=== PATIENT | male | born 1940 | race Caucasian/White ===

== ENCOUNTER 2017-01-04 13:27 | Outpatient (CLI) | payer MEDICARE ==
[2017-01-04 13:49] LABS: INR-International Normal Ratio 1.1; Prothrombin Time 14.7 SEC (12.0-14.7)
[2017-01-04 14:10] LABS: #Basophils 0.1 thou/uL (0.0-0.2); #Eosinphils 0.4 thou/uL (0.0-0.7); #Lymphocytes 2.1 thou/uL (1.20-3.40); #Neutrophils 6.1 thou/uL (1.40-6.50); %Basophils 0.8 % (0.0-1.0); %Eosinophils 3.9 % (0.0-10.0); %Lymphocytes 21.6 % (21.0-51.0); %Monocytes 10.8 % (0.0-10.0); %Neutrophils 62.9 % (42.0-75.0); Anisocytosis SLIGHT = 6-15 cells (100X) (0-5/hpf); Hemoglobin 14.9 g/dL (14.0-18.0); MDiff Complete? YES; Mean Corpuscular HGB CONC 34.1 g/dL (32.0-36.0); Mean Corpuscular Hemoglobin 35.6 pg (27.0-31.0); Mean Corpuscular Volume 104.4 fl (80.0-94.0); Mean Platelet Volume 11.2 fL (7.4-10.4); Platelet Count 177 thou/uL (130-400); Red Blood Cell (RBC) Count 4.19 mill/uL (4.70-6.10); White Blood Cell (WBC) Count 9.6 thou/uL (4.8-10.8)
[2017-01-04 18:38] LABS: ALT (SGPT) 48 U/L (8-55); AST (SGOT) 27 U/L (5-34); Albumin 4.3 g/dL (3.4-4.8); Alkaline Phosphatase 97 U/L (40-150); Anion Gap 18 mmol/L (10-20); BUN (Urea Nitrogen) 12 mg/dL (8.4-25.7); Bilirubin, Total Less than 0.3 mg/dL (0.2-1.2); CRP (Inflammatory) 2.09 mg/dL (= or < 0.5); Calc. Creatinine Clearance 0 mL/min (70-130); Carbon Dioxide 26 mmol/L (23-31); Chloride 99 mmol/L (98-107); Estimated GFR-MDRD 67; Globulin 2.5 g/dL (2.4-3.5); Glucose 93 mg/dL (83-110); Potassium 3.9 mmol/L (3.5-5.1); Protein, Total 6.8 g/dL (5.8-8.1); Sodium 139 mmol/L (136-145)
[2017-01-04 18:46] LABS: Vancomycin, Trough 16.3 ug/mL
== END 2017-01-04 13:28 | disposition home or self-care (01) ==
LOC: MADLAB 13:27
PROVIDERS: ATTEND Family Medicine
DX: I33.9 Acute and subacute endocarditis, unspecified (principal); I74.9 Embolism and thrombosis of unspecified artery; D75.89 Other specified diseases of blood and blood-forming organs
CPT/HCPCS: 36415; 80053; 80202; 84165; 84166; 85025; 85610; 85652; 86140

== ENCOUNTER 2017-01-10 13:23 | Outpatient (CLI) | payer MEDICARE ==
[2017-01-10 13:38] LABS: Vancomycin, Trough 26.1 ug/mL
[2017-01-10 13:39] LABS: #Basophils 0.1 thou/uL (0.0-0.2); #Eosinphils 0.3 thou/uL (0.0-0.7); #Lymphocytes 1.7 thou/uL (1.20-3.40); #Monocytes 0.9 thou/uL (0.11-0.59); #Neutrophils 4.6 thou/uL (1.40-6.50); %Basophils 1.3 % (0.0-1.0); %Eosinophils 4.6 % (0.0-10.0); %Lymphocytes 21.9 % (21.0-51.0); %Monocytes 12.1 % (0.0-10.0); %Neutrophils 60.1 % (42.0-75.0); ALT (SGPT) 41 U/L (8-55); AST (SGOT) 22 U/L (5-34); Albumin 4.2 g/dL (3.4-4.8); Alkaline Phosphatase 112 U/L (40-150); Anion Gap 14 mmol/L (10-20); BUN (Urea Nitrogen) 18 mg/dL (8.4-25.7); Bilirubin, Total 0.4 mg/dL (0.2-1.2); CRP (Inflammatory) 2.84 mg/dL (= or < 0.5); Calc. Creatinine Clearance 0 mL/min (70-130); Calcium 9.2 mg/dL (7.8-10.44); Carbon Dioxide 31 mmol/L (23-31); Chloride 100 mmol/L (98-107); Estimated GFR-MDRD 45; Globulin 2.4 g/dL (2.4-3.5); Glucose 95 mg/dL (83-110); Hemoglobin 14.5 g/dL (14.0-18.0); Mean Corpuscular HGB CONC 33.3 g/dL (32.0-36.0); Mean Corpuscular Hemoglobin 34.4 pg (27.0-31.0); Mean Corpuscular Volume 103.3 fl (80.0-94.0); Mean Platelet Volume 9.3 fL (7.4-10.4); Platelet Count 206 thou/uL (130-400); Potassium 4.4 mmol/L (3.5-5.1); Protein, Total 6.6 g/dL (5.8-8.1); RBC Distribution Width 10.6 % (11.5-14.5); Red Blood Cell (RBC) Count 4.22 mill/uL (4.70-6.10); Sodium 141 mmol/L (136-145); White Blood Cell (WBC) Count 7.6 thou/uL (4.8-10.8)
[2017-01-10 13:46] LABS: Prothrombin Time 13.9 SEC (12.0-14.7)
== END 2017-01-10 13:24 | disposition home or self-care (01) ==
LOC: MADLAB 13:23
PROVIDERS: ATTEND Family Medicine
DX: I33.0 Acute and subacute infective endocarditis (principal); I74.9 Embolism and thrombosis of unspecified artery; D75.89 Other specified diseases of blood and blood-forming organs
CPT/HCPCS: 36415; 80053; 80202; 84165; 84166; 85025; 85610; 85652; 86140; 86334

== ENCOUNTER 2017-01-12 11:06 | Outpatient (CLI) | payer MEDICARE ==
[2017-01-12 12:20] LABS: Vancomycin, Trough 14.5 ug/mL
[2017-01-12 13:07] LABS: Anion Gap 15 mmol/L (10-20); BUN (Urea Nitrogen) 13 mg/dL (8.4-25.7); Calc. Creatinine Clearance 0 mL/min (70-130); Calcium 8.8 mg/dL (7.8-10.44); Carbon Dioxide 29 mmol/L (23-31); Chloride 98 mmol/L (98-107); Estimated GFR-MDRD 48; Glucose 103 mg/dL (83-110); Sodium 138 mmol/L (136-145)
== END 2017-01-12 11:07 | disposition home or self-care (01) ==
LOC: MADLABSP 11:06
PROVIDERS: ATTEND Family Medicine
DX: Z51.81 Encounter for therapeutic drug level monitoring (principal); I33.0 Acute and subacute infective endocarditis; I74.9 Embolism and thrombosis of unspecified artery; D75.89 Other specified diseases of blood and blood-forming organs; Z79.2 Long term (current) use of antibiotics
CPT/HCPCS: 36415; 80048; 80202

== ENCOUNTER 2017-01-16 13:17 | Outpatient (CLI) | payer MEDICARE ==
[2017-01-16 13:39] LABS: Vancomycin, Trough 24.8 ug/mL
== END 2017-01-16 13:18 | disposition home or self-care (01) ==
LOC: MADLAB 13:17
PROVIDERS: ATTEND Internal Medicine Infectious Disease
DX: I33.0 Acute and subacute infective endocarditis (principal); D75.89 Other specified diseases of blood and blood-forming organs
CPT/HCPCS: 36415; 80202

== ENCOUNTER 2017-01-19 13:08 | Outpatient (CLI) | payer MEDICARE ==
[2017-01-19 13:37] LABS: INR-International Normal Ratio 1.2; Prothrombin Time 15.2 SEC (12.0-14.7)
[2017-01-19 13:53] LABS: Vancomycin, Trough 16.5 ug/mL
[2017-01-19 13:55] LABS: ALT (SGPT) 71 U/L (8-55); AST (SGOT) 43 U/L (5-34); Albumin 3.9 g/dL (3.4-4.8); Alkaline Phosphatase 196 U/L (40-150); Anion Gap 17 mmol/L (10-20); BUN (Urea Nitrogen) 16 mg/dL (8.4-25.7); Bilirubin, Total 0.3 mg/dL (0.2-1.2); CRP (Inflammatory) 2.49 mg/dL (= or < 0.5); Calc. Creatinine Clearance 0 mL/min (70-130); Calcium 9.1 mg/dL (7.8-10.44); Carbon Dioxide 28 mmol/L (23-31); Chloride 98 mmol/L (98-107); Estimated GFR-MDRD 42; Globulin 2.3 g/dL (2.4-3.5); Glucose 92 mg/dL (83-110); Potassium 4.6 mmol/L (3.5-5.1); Protein, Total 6.2 g/dL (5.8-8.1); Sodium 138 mmol/L (136-145)
[2017-01-19 14:35] LABS: Band 5 % (5-11); Eosinophils 2 % (0-10); Hemoglobin 13.6 g/dL (14.0-18.0); Lymphocytes 21 % (21-51); MDiff Complete? YES; Mean Corpuscular HGB CONC 34.8 g/dL (32.0-36.0); Mean Corpuscular Volume 100.6 fl (80.0-94.0); Monocytes 25 % (0-10); Neutrophil 47 % (42-75); PLT Morphology Comment Appears Adequate; Platelet Count 170 thou/uL (130-400); RBC Distribution Width 10.5 % (11.5-14.5); Red Blood Cell (RBC) Count 3.87 mill/uL (4.70-6.10); White Blood Cell (WBC) Count 4.6 thou/uL (4.8-10.8)
== END 2017-01-19 13:09 | disposition home or self-care (01) ==
LOC: MADLAB 13:08
PROVIDERS: ATTEND Internal Medicine Infectious Disease
DX: I33.0 Acute and subacute infective endocarditis (principal); I74.9 Embolism and thrombosis of unspecified artery
CPT/HCPCS: 80053; 80202; 85025; 85610; 85652; 86140

== ENCOUNTER 2017-01-22 10:58 | Outpatient (CLI) | payer MEDICARE ==
[2017-01-22 11:24] LABS: Prothrombin Time 13.9 SEC (12.0-14.7)
[2017-01-22 11:27] LABS: Vancomycin, Trough 13.3 ug/mL
[2017-01-22 11:34] LABS: ALT (SGPT) 53 U/L (8-55); AST (SGOT) 41 U/L (5-34); Albumin 3.7 g/dL (3.4-4.8); Alkaline Phosphatase 198 U/L (40-150); Anion Gap 13 mmol/L (10-20); BUN (Urea Nitrogen) 19 mg/dL (8.4-25.7); Bilirubin, Total 0.3 mg/dL (0.2-1.2); CRP (Inflammatory) 2.14 mg/dL (= or < 0.5); Calc. Creatinine Clearance 0 mL/min (70-130); Calcium 8.2 mg/dL (7.8-10.44); Carbon Dioxide 27 mmol/L (23-31); Chloride 97 mmol/L (98-107); Estimated GFR-MDRD 39; Globulin 2.2 g/dL (2.4-3.5); Glucose 135 mg/dL (83-110); Potassium 4.1 mmol/L (3.5-5.1); Protein, Total 5.9 g/dL (5.8-8.1); Sodium 133 mmol/L (136-145)
[2017-01-22 12:00] LABS: Anisocytosis SLIGHT = 6-15 cells (100X) (0-5/hpf); Band 13 % (5-11); Eosinophils 8 % (0-10); Hemoglobin 13.2 g/dL (14.0-18.0); Lymphocytes 31 % (21-51); MDiff Complete? YES; Mean Corpuscular HGB CONC 34.4 g/dL (32.0-36.0); Mean Corpuscular Hemoglobin 34.7 pg (27.0-31.0); Mean Corpuscular Volume 100.9 fl (80.0-94.0); Mean Platelet Volume 9.4 fL (7.4-10.4); Monocytes 2 % (0-10); Neutrophil 46 % (42-75); Platelet Count 124 thou/uL (130-400); RBC Distribution Width 10.3 % (11.5-14.5); Red Blood Cell (RBC) Count 3.82 mill/uL (4.70-6.10); White Blood Cell (WBC) Count 3.6 thou/uL (4.8-10.8)
== END 2017-01-22 10:59 | disposition home or self-care (01) ==
LOC: MADLAB 10:58
PROVIDERS: ATTEND Internal Medicine Infectious Disease
DX: I33.0 Acute and subacute infective endocarditis (principal); I74.9 Embolism and thrombosis of unspecified artery; D75.89 Other specified diseases of blood and blood-forming organs
CPT/HCPCS: 36415; 80053; 80202; 85025; 85610; 85652; 86140

== ENCOUNTER 2017-01-22 16:29 | Emergency (ER) | payer MEDICARE ==
[~2017-01-22 16:29] MED LIST: Sodium Chloride 0.9% 1,000 ML BAG ONE; Sodium Chloride 0.9% 100 ML BAG ONE
[2017-01-22] MEDS ORDERED: Acetaminophen 500 MG TAB ONE (16:36)
[2017-01-22] MEDS ORDERED: Piperacillin/Tazobactam 4.5 GM VIAL ONE (16:53)
[2017-01-22] MEDS ORDERED: cefTRIAXone\\ROCEPHIN 1 GM VIAL ONE (16:53)
[2017-01-22] MEDS ORDERED: Dexamethasone 10 MG/ML VIAL ONE (16:58)
[2017-01-22] MEDS ORDERED: methylPREDNISolone Sod Succ/PF 125 MG/2 ML VIAL ONE (16:58)
[2017-01-22 17:09] LABS: INR-International Normal Ratio 1.1; PTT 33.2 SEC (22.9-36.1); Prothrombin Time 14.2 SEC (12.0-14.7)
[2017-01-22 17:20] LABS: ALT (SGPT) 57 U/L (8-55); AST (SGOT) 48 U/L (5-34); Albumin 3.8 g/dL (3.4-4.8); Alkaline Phosphatase 192 U/L (40-150); Anion Gap 16 mmol/L (10-20); BUN (Urea Nitrogen) 23 mg/dL (8.4-25.7); Bilirubin, Total 0.3 mg/dL (0.2-1.2); CK (CPK) 70 U/L (30-200); Calc. Creatinine Clearance 0 mL/min (70-130); Calcium 8.4 mg/dL (7.8-10.44); Carbon Dioxide 25 mmol/L (23-31); Chloride 96 mmol/L (98-107); Estimated GFR-MDRD 37; Globulin 2.6 g/dL (2.4-3.5); Glucose 115 mg/dL (83-110); Potassium 4.8 mmol/L (3.5-5.1); Protein, Total 6.4 g/dL (5.8-8.1); Sodium 132 mmol/L (136-145)
[2017-01-22 17:21] LABS: CKMB 0.7 ng/mL (0-6.6); Troponin I 0.063 ng/mL (< 0.028)
[2017-01-22] MEDS ORDERED: Aspirin 325 MG TAB ONE (17:34)
[2017-01-22 17:38] LABS: Band 8 % (5-11); Eosinophils 4 % (0-10); Hemoglobin 13.4 g/dL (14.0-18.0); Lymphocytes 13 % (21-51); MDiff Complete? YES; Mean Corpuscular HGB CONC 34.6 g/dL (32.0-36.0); Mean Corpuscular Hemoglobin 34.5 pg (27.0-31.0); Mean Platelet Volume 10.4 fL (7.4-10.4); Monocytes 10 % (0-10); Neutrophil 65 % (42-75); Platelet Count 111 thou/uL (130-400); RBC Distribution Width 10.3 % (11.5-14.5); Red Blood Cell (RBC) Count 3.89 mill/uL (4.70-6.10); White Blood Cell (WBC) Count 3.9 thou/uL (4.8-10.8)
[2017-01-22 17:44] LABS: Bilirubin Negative (Negative); Clarity Hazy (Clear); Glucose, Urine (Dipstick) Negative (Negative); Leukocyte Negative (Negative); Nitrite Negative (Negative); Protein, Urine (Dipstick) Negative (Neg-Trace); Urobilinogen 0.2 mg/dL (0.2-1.0)
[2017-01-22 17:45] LABS: Bacteria/HPF Rare-Few HPF (None Seen); Blood, Urine Trace (Negative); WBC/HPF 0-3 HPF (0-3)
--- NOTE | 2017-01-22 18:17 | RAD ---
RADIOGRAPH CHEST 1 VIEW: HISTORY: 76-year-old male with dyspnea. FINDINGS: There is hyperinflation of the lungs, consistent with COPD. There is no evidence of air space densi ty, pneumothorax, or pulmonary edema. The lateral costophrenic angles are sharp. There is no cardio megaly. PICC with distal tip at lower SVC. IMPRESSION: 1) No acute pulmonary findings. 2) Emphysema. 3) Left sided peripherally inserted central catheter (PICC). mychal POS: [facility]
== END 2017-01-22 17:49 | disposition short-term general hospital (02) ==
LOC: MADERS 16:29
DX: J44.1 Chronic obstructive pulmonary disease with (acute) exacerbation (principal); I51.89 Other ill-defined heart diseases; I10 Essential (primary) hypertension; I25.2 Old myocardial infarction; F17.200 Nicotine dependence, unspecified, uncomplicated
CPT/HCPCS: 36415; 71010; 80053; 80202; 81001; 82553; 83605; 83880; 84484; 85025; 85379; 85610; 85652; 85730; 86140; 93005; 94760; 96365; 96367; 96375; J0696; J1100; J2543; J2930; J7050; J7620

== ENCOUNTER 2017-02-02 10:40 | Outpatient (CLI) | payer MEDICARE ==
[2017-02-02 10:54] LABS: INR-International Normal Ratio 2.5
== END 2017-02-02 10:41 | disposition home or self-care (01) ==
LOC: MADLAB 10:40
PROVIDERS: ATTEND Family Medicine
DX: I48.0 Paroxysmal atrial fibrillation (principal)
CPT/HCPCS: 36415; 85610

== ENCOUNTER 2017-02-05 10:28 | Outpatient (CLI) | payer MEDICARE ==
[2017-02-05 11:02] LABS: INR-International Normal Ratio 3.1; Prothrombin Time 31.3 SEC (12.0-14.7)
[2017-02-05 11:17] LABS: ALT (SGPT) 37 U/L (8-55); AST (SGOT) 48 U/L (5-34); Albumin 3.6 g/dL (3.4-4.8); Alkaline Phosphatase 104 U/L (40-150); Anion Gap 8 mmol/L (10-20); BUN (Urea Nitrogen) 21 mg/dL (8.4-25.7); Bilirubin, Total 0.3 mg/dL (0.2-1.2); CRP (Inflammatory) 0.91 mg/dL (= or < 0.5); Calc. Creatinine Clearance 0 mL/min (70-130); Calcium 8.5 mg/dL (7.8-10.44); Carbon Dioxide 28 mmol/L (23-31); Chloride 107 mmol/L (98-107); Estimated GFR-MDRD 44; Globulin 2.3 g/dL (2.4-3.5); Glucose 97 mg/dL (83-110); Protein, Total 5.9 g/dL (5.8-8.1); Sodium 138 mmol/L (136-145)
[2017-02-05 11:52] LABS: #Basophils 0.1 thou/uL (0.0-0.2); #Eosinphils 0.7 thou/uL (0.0-0.7); #Monocytes 0.8 thou/uL (0.11-0.59); #Neutrophils 5.2 thou/uL (1.40-6.50); %Basophils 1.5 % (0.0-1.0); %Eosinophils 8.3 % (0.0-10.0); %Lymphocytes 22.8 % (21.0-51.0); %Monocytes 8.6 % (0.0-10.0); %Neutrophils 58.8 % (42.0-75.0); Hemoglobin 12.4 g/dL (14.0-18.0); Mean Corpuscular HGB CONC 32.6 g/dL (32.0-36.0); Mean Corpuscular Hemoglobin 33.2 pg (27.0-31.0); Mean Corpuscular Volume 101.8 fl (80.0-94.0); Platelet Count 243 thou/uL (130-400); RBC Distribution Width 10.7 % (11.5-14.5); Red Blood Cell (RBC) Count 3.73 mill/uL (4.70-6.10); White Blood Cell (WBC) Count 8.9 thou/uL (4.8-10.8)
== END 2017-02-05 10:29 | disposition home or self-care (01) ==
LOC: MADLAB 10:28
PROVIDERS: ATTEND Internal Medicine Infectious Disease
DX: Z51.81 Encounter for therapeutic drug level monitoring (principal); I48.91 Unspecified atrial fibrillation; I33.0 Acute and subacute infective endocarditis; Z79.2 Long term (current) use of antibiotics; Z79.01 Long term (current) use of anticoagulants
CPT/HCPCS: 36415; 80053; 85025; 85610; 85652; 86140

== ENCOUNTER 2017-02-09 11:27 | Outpatient (CLI) | payer MEDICARE ==
[2017-02-09 12:35] LABS: INR-International Normal Ratio 3.3; Prothrombin Time 32.9 SEC (12.0-14.7)
[2017-02-09 12:42] LABS: Digoxin 0.42 ng/mL (0.8-2.0)
== END 2017-02-09 11:28 | disposition home or self-care (01) ==
LOC: MADLAB 11:27
PROVIDERS: ATTEND Family Medicine
DX: I33.0 Acute and subacute infective endocarditis (principal); I48.91 Unspecified atrial fibrillation; E24.2 Drug-induced Cushing's syndrome
CPT/HCPCS: 36415; 80162; 85610

== ENCOUNTER 2017-02-12 13:27 | Outpatient (CLI) | payer MEDICARE ==
[2017-02-12 13:47] LABS: #Basophils 0.1 thou/uL (0.0-0.2); #Eosinphils 0.9 thou/uL (0.0-0.7); #Neutrophils 3.8 thou/uL (1.40-6.50); %Basophils 1.7 % (0.0-1.0); %Lymphocytes 25.4 % (21.0-51.0); %Monocytes 12.9 % (0.0-10.0); Hemoglobin 13.1 g/dL (14.0-18.0); MDiff Complete? YES; Macrocytosis SLIGHT = 6-15 cells (100X) (0-5/hpf); Mean Corpuscular HGB CONC 33.6 g/dL (32.0-36.0); Mean Corpuscular Hemoglobin 34.1 pg (27.0-31.0); Mean Corpuscular Volume 101.6 fl (80.0-94.0); Mean Platelet Volume 9.3 fL (7.4-10.4); Platelet Count 233 thou/uL (130-400); RBC Distribution Width 11.4 % (11.5-14.5); Red Blood Cell (RBC) Count 3.86 mill/uL (4.70-6.10); White Blood Cell (WBC) Count 7.9 thou/uL (4.8-10.8)
[2017-02-12 13:56] LABS: INR-International Normal Ratio 3.8; Prothrombin Time 36.7 SEC (12.0-14.7)
[2017-02-12 14:31] LABS: ALT (SGPT) 20 U/L (8-55); AST (SGOT) 25 U/L (5-34); Albumin 3.8 g/dL (3.4-4.8); Alkaline Phosphatase 113 U/L (40-150); Anion Gap 18 mmol/L (10-20); BUN (Urea Nitrogen) 24 mg/dL (8.4-25.7); Bilirubin, Total Less than 0.3 mg/dL (0.2-1.2); CRP (Inflammatory) 0.77 mg/dL (= or < 0.5); Calc. Creatinine Clearance 0 mL/min (70-130); Calcium 8.5 mg/dL (7.8-10.44); Carbon Dioxide 26 mmol/L (23-31); Chloride 101 mmol/L (98-107); Estimated GFR-MDRD 36; Globulin 3.4 g/dL (2.4-3.5); Glucose 141 mg/dL (83-110); Protein, Total 7.2 g/dL (5.8-8.1); Sodium 140 mmol/L (136-145)
== END 2017-02-12 13:28 | disposition home or self-care (01) ==
LOC: MADLAB 13:27
PROVIDERS: ATTEND Family Medicine
DX: I33.0 Acute and subacute infective endocarditis (principal); I48.91 Unspecified atrial fibrillation; Z79.2 Long term (current) use of antibiotics
CPT/HCPCS: 36415; 80053; 85025; 85610; 85652; 86140

== ENCOUNTER 2017-07-29 02:12 | Emergency (ER) | payer MEDICARE ==
[2017-07-29] MEDS ORDERED: Albuterol Sulfate 2.5 mg/0.5 ml Neb ONE (02:29)
[2017-07-29] MEDS ORDERED: cloNIDine 0.1 MG TAB ONE (02:43)
[2017-07-29 03:23] LABS: Prothrombin Time 13.1 SEC (12.0-14.7)
[2017-07-29 03:25] LABS: D-Dimer Test 0.48 *mcg/mL (0.27-0.43)
[2017-07-29] MEDS ORDERED: Acetaminophen 500 MG TAB ONE (03:36)
[2017-07-29 03:48] LABS: #Basophils 0.1 thou/uL (0.0-0.2); #Eosinphils 0.2 thou/uL (0.0-0.7); #Lymphocytes 0.9 thou/uL (1.20-3.40); #Monocytes 0.4 thou/uL (0.11-0.59); #Neutrophils 8.9 thou/uL (1.40-6.50); %Basophils 0.6 % (0.0-1.0); %Eosinophils 1.6 % (0.0-10.0); %Lymphocytes 8.9 % (21.0-51.0); %Monocytes 3.9 % (0.0-10.0); Mean Corpuscular HGB CONC 32.7 g/dL (32.0-36.0); Mean Corpuscular Hemoglobin 32.8 pg (27.0-31.0); Mean Corpuscular Volume 100.4 fl (80.0-94.0); Mean Platelet Volume 12.2 fL (7.4-10.4); Platelet Count 153 thou/uL (130-400); RBC Distribution Width 12.3 % (11.5-14.5); Red Blood Cell (RBC) Count 4.27 mill/uL (4.70-6.10); White Blood Cell (WBC) Count 10.5 thou/uL (4.8-10.8)
[2017-07-29 03:50] LABS: PLT Morphology Comment Appears Adequate; Platelet Satellitism SLIGHT
[2017-07-29 04:06] LABS: Troponin I 0.152 ng/mL (< 0.028)
[2017-07-29 04:07] LABS: ALT (SGPT) 12 U/L (8-55); AST (SGOT) 22 U/L (5-34); Albumin 4.3 g/dL (3.4-4.8); Alkaline Phosphatase 77 U/L (40-150); Anion Gap 19 mmol/L (10-20); BUN (Urea Nitrogen) 21 mg/dL (8.4-25.7); Bilirubin, Total 0.4 mg/dL (0.2-1.2); Calc. Creatinine Clearance 0 mL/min (70-130); Calcium 8.8 mg/dL (7.8-10.44); Carbon Dioxide 24 mmol/L (23-31); Chloride 105 mmol/L (98-107); Estimated GFR-MDRD 54; Globulin 2.8 g/dL (2.4-3.5); Glucose 132 mg/dL (83-110); Potassium 5.1 mmol/L (3.5-5.1); Protein, Total 7.1 g/dL (5.8-8.1); Sodium 143 mmol/L (136-145)
[2017-07-29 04:09] LABS: CKMB 8.1 ng/mL (0-6.6)
[2017-07-29] MEDS ORDERED: Furosemide 20 MG/2 ML VIAL ONE (04:18)
[2017-07-29] MEDS ORDERED: Enoxaparin Sodium 80 MG/0.8 ML SYRINGE ONE (04:18)
[2017-07-29] MEDS ORDERED: cefTRIAXone\\ROCEPHIN 1 GM VIAL ONE (04:25)
[2017-07-29] MEDS ORDERED: Sodium Chloride 0.9% 100 ML BAG ONE (09:23)
[2017-07-29] MEDS ORDERED: Iopamidol 370 76% 125 ML VIAL FS ONE (09:23)
--- NOTE | 2017-07-29 10:34 | RAD ---
CHEST 2 VIEWS: HISTORY: Dyspnea. COMPARISON: 12/24/16 exam. FINDINGS: Heart size is within normal limits with atherosclerotic change of the aorta. The chronic interstitia l lung changes. No acute process. IMPRESSION: Chronic lung change. POS: [facility]
--- NOTE | 2017-07-29 12:14 | CT ---
PRELIMINARY REPORT/[facility]/EMERGENCY AFTER HOURS PROCEDURE: EXAM: CT Angiography Chest With Intravenous Contrast CLINICAL HISTORY: The patient is a 76 years male; Signs and symptoms; Dyspnea TECHNIQUE: Axial computed tomographic angiography images of the chest with intravenous contrast using pulmonary embolism protocol. Coronal reformatted images were created and reviewed. CONTRAST: 120 mL of ISOVUE 370 administered intravenously. COMPARISON: No relevant prior studies available. FINDINGS: Pulmonary arteries: The pulmonary arteries are well opacified to the segmental level with no evidence of filling defect. The peripheral subsegmental branches are incompletely evaluated at the lung bases due to motion. Aorta: Calcified and noncalcified atherosclerotic plaque. No aortic aneurysm or dissection. Lungs: Diffusely increased interstitial markings with bibasilar atelectasis/scarring. Mild patchy per ipheral opacity at the right posterior lung base may represent mild superimposed pneumonitis. No loba r consolidation. There are a few scattered bilateral subcentimeter calcified granulomas. Central airw ays normal in caliber and patent. Pleural space: No significant effusion. No pneumothorax. Heart: Upper normal in size. Calcifications of the coronary arteries and mitral annulus. No significa nt pericardial effusion. No evidence of RV dysfunction. Bones/joints: No acute fracture. Soft tissues: Unremarkable. Lymph nodes: Scattered small calcified hilar nodes consistent with old granulomatous disease. Border line 9 mm right hilar node. Upper abdomen: No acute findings. IMPRESSION: 1. No evidence of pulmonary embolism to the segmental level. The subsegmental branches at the lung ba ses are incompletely evaluated due to motion. 2. Atherosclerotic plaque with no aortic aneurysm or dissection. 3. Nonspecific diffusely increased interstitial markings with bibasilar atelectasis/scarring. Mild beaver perimposed pneumonitis at the right posterior lung base not excluded. No lobar consolidation. 4. Old granulomatous disease. Thank you for allowing us to participate in the care of your patient. Dictated and Authenticated by: Donaldo Tran MD 07/29/2017 5:31 AM Central Time ([place] & [place]) FINAL REPORT CT ANGIO CHEST PERFORMED WITH INTRAVENOUS CONTRAST ENHANCEMENT WITH 3D RECONSTRUCTIONS: HISTORY: Shortness of breath. FINDINGS: The lungs show some chronic-appearing change. Small bilateral effusions are noted. There is bibasil ar interstitial lung change slightly more prominent within the right base most likely related to atel ectasis, although early infiltrate in the right base is difficult to definitely exclude. There is no significant mediastinal or hilar adenopathy. There is atherosclerotic change of a normal -caliber aorta. There is fairly good pulmonary artery opacification. There is motion artifact in the lung bases whic h precludes detailed evaluation of this area but I see no CT evidence for pulmonary embolus. The visualized liver parenchyma shows no focal abnormalities. IMPRESSION: 1. Small bilateral effusions with some bibasilar interstitial lung change, right greater than left. I cannot exclude this is early infiltrate versus atelectasis. 2. No CT evidence for pulmonary embolus. 3. This report is in agreement with the temporary report issued by [facility]. POS: [facility]
== END 2017-07-29 04:50 | disposition short-term general hospital (02) ==
LOC: MADERS 02:12
DX: J44.0 Chronic obstructive pulmonary disease with (acute) lower respiratory infection (principal); J18.9 Pneumonia, unspecified organism; I11.0 Hypertensive heart disease with heart failure; I50.9 Heart failure, unspecified; I25.2 Old myocardial infarction; F17.200 Nicotine dependence, unspecified, uncomplicated; Z86.73 Personal history of transient ischemic attack (TIA), and cerebral infarction without residual deficits; Z79.899 Other long term (current) drug therapy
CPT/HCPCS: 36415; 71020; 71275; 80053; 82553; 83880; 84484; 85025; 85379; 85610; 93005; 96372; 96374; 96375; J0696; J1650; J1940; J7050; J7611

== ENCOUNTER → 2017-12-01 | Emergency (ER) | payer MEDICARE ==
[~2017-12-01] MED LIST changes: +Albuterol Sulfate 2.5 mg/0.5 ml Neb ONE; -Sodium Chloride 0.9% 1,000 ML BAG ONE; -Sodium Chloride 0.9% 100 ML BAG ONE; +Sterile Water 0 ML ONE; +Sterile Water 10 ML ONE; +methylPREDNISolone Sod Succ/PF 125 MG/2 ML VIAL ONE
--- NOTE | 2017-12-01 22:49 | RAD ---
PORTABLE AP CHEST X-RAY 12/01/17 HISTORY: Chest pain. COMPARISON: 07/31/17. FINDINGS: The cardiac silhouette and pulmonary vasculature are within normal limits. Chronic lung changes are a gain seen bilaterally with evidence of prior granulomatous disease. There is no consolidation or pleu ral fluid identified. Vascular calcifications are seen in the thoracic aorta. No other interval leon e. IMPRESSION: Chronic lung changes without evidence of an acute cardiopulmonary process. POS: [facility]
[2017-12-01 23:24] LABS: #Basophils 0.1 thou/uL (0.0-0.2); #Eosinphils 0.4 thou/uL (0.0-0.7); #Lymphocytes 1.4 thou/uL (1.20-3.40); #Monocytes 0.4 thou/uL (0.11-0.59); #Neutrophils 8.3 thou/uL (1.40-6.50); %Basophils 0.6 % (0.0-1.0); %Lymphocytes 13.2 % (21.0-51.0); %Monocytes 3.4 % (0.0-10.0); %Neutrophils 78.8 % (42.0-75.0); Hemoglobin 15.3 g/dL (14.0-18.0); Mean Corpuscular HGB CONC 34.6 g/dL (32.0-36.0); Mean Corpuscular Hemoglobin 33.3 pg (27.0-31.0); Mean Corpuscular Volume 96.2 fl (80.0-94.0); Mean Platelet Volume 8.9 fL (7.4-10.4); Platelet Count 159 thou/uL (130-400); White Blood Cell (WBC) Count 10.5 thou/uL (4.8-10.8)
[2017-12-01 23:38] LABS: Anion Gap 14 mmol/L (10-20); BUN (Urea Nitrogen) 32 mg/dL (8.4-25.7); Calc. Creatinine Clearance 0 mL/min (70-130); Calcium 9.4 mg/dL (7.8-10.44); Carbon Dioxide 29 mmol/L (23-31); Chloride 101 mmol/L (98-107); Estimated GFR-MDRD 45; Glucose 122 mg/dL (83-110); Potassium 4.9 mmol/L (3.5-5.1); Sodium 139 mmol/L (136-145)
[2017-12-02 01:21] LABS: CKMB 2.9 ng/mL (0-6.6); Troponin I 0.027 ng/mL (< 0.028)
== END ==
LOC: MADERS 22:12
DX: J44.1 Chronic obstructive pulmonary disease with (acute) exacerbation (principal); I10 Essential (primary) hypertension; F17.210 Nicotine dependence, cigarettes, uncomplicated; Z86.73 Personal history of transient ischemic attack (TIA), and cerebral infarction without residual deficits; Z79.899 Other long term (current) drug therapy
CPT/HCPCS: 71045; 80048; 82553; 83880; 84484; 85025; 93005; 94640; 96374; A4216; J2930; J7611; J7620

== ENCOUNTER 2017-12-28 09:49 | Outpatient (CLI) | payer MEDICARE ==
[2017-12-28 10:30] LABS: Anion Gap 14 mmol/L (10-20); BUN (Urea Nitrogen) 21 mg/dL (8.4-25.7); Calc. Creatinine Clearance 0 mL/min (70-130); Calcium 9.1 mg/dL (7.8-10.44); Carbon Dioxide 29 mmol/L (23-31); Chloride 103 mmol/L (98-107); Estimated GFR-MDRD 52; Glucose 99 mg/dL (83-110); Potassium 4.4 mmol/L (3.5-5.1); Sodium 142 mmol/L (136-145)
== END 2017-12-28 09:50 | disposition home or self-care (01) ==
LOC: MADLAB 09:49
PROVIDERS: ATTEND Family Medicine
DX: R60.9 Edema, unspecified (principal)
CPT/HCPCS: 36415; 80048